=== PATIENT | male | born 1950 | race Caucasian/White ===

== ENCOUNTER 2024-04-14 09:46 | Day surgery (SDC) | payer BC, MEDICARE ==
[2024-04-12 12:26] VITALS: BMI 35.9
[~2024-04-14 09:46] MED LIST: Iopamidol 300 61% 100 ML VIAL FS ONE
[2024-04-14 14:38] VITALS: BP 143/86; TEMP 98.3
[2024-04-14] MEDS ORDERED: Lidocaine 1% (PF) 30 ML VIAL ONE (14:41)
[2024-04-14] MEDS ORDERED: Heparin 10,000 UNITS/ 10 ML VIAL ONE (14:41)
[2024-04-14] MEDS ORDERED: Nitroglycerin 50 MG/250 ML BOT 0 ML ONE (14:41)
[2024-04-14] MEDS ORDERED: Atropine Sulfate 1 mg/1 ml Vial ONE (14:42)
[2024-04-14] MEDS ORDERED: Adenosine 6 mg (2 mL) VIAL ONE (14:42)
[2024-04-14] MEDS ORDERED: fentaNYL 50 mcg/mL 1 mL Vial ONE (14:50)
[2024-04-14] MEDS ORDERED: Midazolam HCl 2 mg/2 ml Vial ONE (14:50)
[2024-04-14] MEDS ORDERED: Clopidogrel Bisulfate 300 MG TAB ONE (15:29)
== END 2024-04-14 18:05 | disposition home or self-care (01) ==
LOC: CSHCCL 09:46
PROVIDERS: ATTEND Specialist
PROC: 4A023N7 Measurement of Cardiac Sampling and Pressure, Left Heart, Percutaneous Approach (ICD-10-PCS; principal; 2024-04-14)
PROC: B201YZZ Plain Radiography of Multiple Coronary Arteries using Other Contrast (ICD-10-PCS; principal; 2024-04-14)
PROC: B205YZZ Plain Radiography of Left Heart using Other Contrast (ICD-10-PCS; principal; 2024-04-14)
DX: I25.118 Atherosclerotic heart disease of native coronary artery with other forms of angina pectoris (principal); R94.39 Abnormal result of other cardiovascular function study; I11.0 Hypertensive heart disease with heart failure; I50.32 Chronic diastolic (congestive) heart failure; I48.0 Paroxysmal atrial fibrillation; M19.90 Unspecified osteoarthritis, unspecified site; E78.2 Mixed hyperlipidemia; Z95.5 Presence of coronary angioplasty implant and graft; Z79.899 Other long term (current) drug therapy; Z98.49 Cataract extraction status, unspecified eye; Z98.890 Other specified postprocedural states; Z90.79 Acquired absence of other genital organ(s); Z96.652 Presence of left artificial knee joint
CPT/HCPCS: 92928; 92978; 93458; 99152; 99153; C9600; J0153; J0461; J1644; J2001; J2250; J3010; Q9967